=== PATIENT | male | born 1995 | race Caucasian/White ===

== ENCOUNTER 2020-11-15 14:18 | Inpatient (IN) | payer MEDICAID, SELFPAY ==
[2020-11-15 14:20] VITALS: BP 147/95; PULSE 129; RESP 16; TEMP 36.3; O2SAT 99; BMI 29.0
--- NOTE | 2020-11-15 14:32 | EDS_ITS ---
HPI History of Present Illness Chief Complaint: Substance Abuse Detail of Chief Complaint: Requesting detox from alcohol and meth Informant: patient and family Narrative Narrative: Patient presents to the emergency department with his aunt. He is requesting detox from alcohol. Patient has been drinking daily and normally drinks twisted teas as well as vodka. Patient last alcohol drink was yesterday. Patient has been using methamphetamines today. Per his aunt has been hallucinating and has been quite paranoid at times. Patient has not been sleeping well. Patient denies feeling suicidal or homicidal. He feels like he needs help mostly from his alcohol addiction. Patient does not frequently use opiates but states that if he is offered it he will use it. Prior similar symptoms: Yes PFSH PFSH Medical History Alcohol abuse Alcohol abuse Methamphetamine use Overdose Polysubstance abuse Tobacco use Home Medications NK 11/15/20 [History Last Taken Unknown] Allergy/AdvReac Type Severity Reaction Status Date / Time No Known Allergies Allergy Verified 11/15/20 14:19 Surgical History (Updated 11/15/20 @ 14:57 by Payton Hicks) Hx of cholecystectomy Social History Smoking Status: Current every day smoker tobacco type: cigarettes ROS ROS ED Constitutional Constitutional ED: Reports systems reviewed and no addt'l complaints, except as documented; Denies body ache(s), change in weight or chills Eyes Eyes: Denies acute decrease in peripheral vision, change in vision, double vision or loss of vision ENT ENT ED: Reports none; Denies ear pain, lip swelling, loss taste/smell, neck pain, otalgia or sore throat Cardiovascular Cardiovascular: Reports none; Denies abdominal pain, chest pain with activity, leg edema, lightheadedness, palpitations, rapid heart rate or syncope Respiratory/Chest Respiratory/Chest: Reports none; Denies change in mental status, dry cough, dyspnea, hemoptysis, shortness of breath at rest or shortness of breath with exertion Gastrointestinal Gastrointestinal: Reports none; Denies abdominal pain, change in stool character, diarrhea, hematemesis, hematochezia, melena, rectal bleeding or vomiting Genitourinary Genitourinary ED: Reports none; Denies abdominal discomfort, anuria, dysuria, genital pain or polyuria Musculoskeletal Musculoskeletal: Reports none; Denies arthralgias, back pain, difficulty walking, extremity pain, muscle weakness or myalgias Integumentary Reports none; Denies abscess or rash Neurologic Neurologic: Reports none; Denies abnormal gait, confusion, focal weakness, frequent falls, headache(s), loss of vision, numbness, paresthesias, radicular pain, vertigo or weakness Psychiatric Psychiatric: Reports systems reviewed and no addt'l complaints, except as documented and none; Denies behavioral changes, confusion, difficulty concentrating, hallucinations, suicidal ideation, tactile hallucinations or visual hallucinations Endocrine Endocrinology: Denies none, cold intolerance, excessive sweating, fatigue or h eat intolerance Hematologic/Lymphatic Hematologic/Lymphatic: Reports none; Denies anemia, easy bleeding or easy bruising Allergic/Immunologic Allergic/Immunologic ED: Denies as per HPI, none, lip swelling, mouth swelling, throat swelling, tongue swelling or hives EXAM Physical Exam Const Vital Signs: 11/15/20 14:20 Temperature 97.3 F L Temperature Source Temporal Pulse Rate 129 H Respiratory Rate 16 Blood Pressure 147/95 H Blood Pressure Mean 112 Pulse Ox 99 Oxygen Delivery Method Room Air Positive well nourished and well developed General Appearance ED: well developed and NAD HEENT Reports TM's clear and moist mucous membranes normocephalic and atraumatic; Negative for trauma or tenderness Tympanic Membrane ED: Yes TM's clear Eyes PERRL and EOMs intact bilaterally General Eye ED: Negative for pale conjunctiva or scleral icterus Neck no lymphadenopathy, supple and no JVD General: Negative for tenderness Chest Wall inspection of chest normal and palpation of chest normal Chest: Negative for tenderness Resp normal respiratory effort and clear to auscultation bilaterally Effort and Inspection: Negative for respiratory distress or pain with movement Auscultation: Negative for rhonchi, wheezes or diminished lung sounds Cardio regular rhythm, S1 normal heart sound, S2 normal heart sound and no murmurs Rate: tachycardic Peripheral Pulses: pulses 2+ throughout GI normal to inspection, nondistended, normoactive bowel sounds, soft to palpation, non-tender, non-distended and no masses Back/Spine no CVA tenderness and no thoracic nor lumbar tenderness Extremity normal to inspection General Extremety ED: Negative for edema General Extremity: Negative for edema Neuro oriented x3, CN's II-XII intact bilaterally, no sensory deficits noted and gait normal Sensorium / Orientation: awake, alert, oriented to person, oriented to place and oriented to time Motor Exam: strength 5/5 throughout and strength abnormal Psych mental status grossly normal Skin no rashes or lesions noted and no wounds MDM MDM MDM Narrative Medical decision making narrative: Patient had an IV line established he was given a milligram of Ativan and given some IV fluids. Case discussed with hospitalist will evaluate patient for admission. Lab Data Attestation: I reviewed the patient's lab results. Labs: Laboratory Results - last 24 hr 11/15/20 11/15/20 11/15/20 14:48 14:48 14:48 WBC 12.4 H RBC 5.29 Hgb 15.8 Hct 48.4 MCV 91.5 MCH 29.9 MCHC 32.6 RDW Std Deviation 46.0 H RDW Coeff of Laci 13.6 Plt Count 279 MPV 10.3 Immature Gran % (Auto) 0.400 Neut % (Auto) 68.9 Lymph % (Auto) 23.3 [place] % (Auto) 6.9 Eos % (Auto) 0.2 Baso % (Auto) 0.3 Absolute Neuts (auto) 8.5 H Absolute Lymphs (auto) 2.89 Nucleated RBC % 0 Sodium 142 Potassium 3.7 Chloride 107 Carbon Dioxide 28.0 Anion Gap 7 BUN 6 L Creatinine 1.04 Estim Creat Clear Calc 117.66 Est GFR (MDRD) Af Amer 113 Est GFR (MDRD) Non-Af 93 BUN/Creatinine Ratio 5.8 L Glucose 97 Calcium 9.6 Total Bilirubin 0.50 AST 32 ALT 55 Alkaline Phosphatase 78 Total Protein 8.1 Albumin 4.5 Globulin 3.6 Albumin/Globulin Ratio 1.2 Ethyl Alcohol < 3.0 Discharge Plan Triage Chief Complaint: Substance Abuse ED Provider: Timoteo Cifuentes Dx/Rx/DC Orders Clinical Impression: Alcohol abuse, Withdrawn from alcohol detoxification program Prescriptions: No Action NK RF: 0 Primary Care Provider: Care Physician,No Primary Referrals: Care Physician,No Primary [Primary Care Provider] - Disposition Disposition: Acute Care Hospital [facility]
--- NOTE | 2020-11-15 14:38 | CM.ED ---
Addendum entered by Virginia Anne 11/15/20 19:33: Patient reports he wants [facility] at discharge from Detox. Patient will follow up with [facility] tomorrow. Virginia Dayana HUDSON Original Note: SARAH Note Referral Source: Case Find Referral Reason: RAMP program SARAH met with patient in his room. Present was his aunt who is also his recovery support. Patient reports he wants to detox. Patient is detoxing from alcohol and meth. MD updated patient that the hospital does not detox meth. Patient was asked if he uses opiates and he reported he does if they are given to him. Patient said that he has been drinking twisted tea and vodka. Patient said that he drinks daily. Patient reports he drinks 1-2 cases a day and then 1-2 bottles of alcohol. Patient said that his drug of choice is mainly alcohol. SARAH explained the RAMP program and the contract for patient's to sign. Explained no visitors, possessions locked up and no phone calls. Patient verbalized understanding and was in agreement with RAMP program. Aunt said that patient is currently high from alcohol. Patient reports that he has no PCP. Patient's last use of alcohol was yesterday. SARAH called [facility] and left voice mail for Karie advising her of new admission to [facility]. SARAH provided patient with list of PCP/Internal Medicine Providers for patient's review. Patient reports he was previously in detox 2 years ago but never has been in residential treatment. Patient said that he wants residential treatment. SW received call back from Karie at [facility]. SW updated her about patient and his desire for RAMP program. SARAH updated Karie about patient's use and last use of AOD. Karie said that treatment navigator, Cristal, will be in tomorrow to meet with patient. Plan: RAMP program Virginia HUDSON
[2020-11-15] MEDS: 0.9% Normal Saline 1,000 ML 150 ML IV (14:51)
[2020-11-15] MEDS: LORazepam 2 MG/ML Syringe 1 MG IV (14:54)
[2020-11-15 15:04] LABS: Absolute Lymphocyte Count 2.89 X10^3/uL (0.83-4.51); Absolute Neutrophil Count 8.5 X10^3/uL (2.0-7.7); Basophil# 0.04 X10^3/uL; Basophil% 0.3 % (0-1); Eosinophil# 0.03 X10^3/uL; Eosinophils% 0.2 % (0-5); Hematocrit 48.4 % (40-54); Hemoglobin 15.8 g/dL (13.0-16.5); Lymphocyte # 2.89 X10^3/ul (0.83-4.51); Lymphocyte % 23.3 % (19-41); Mean Corp Hgb Conc 32.6 g/dL (32-36); Mean Corpuscular Hgb 29.9 pg (27.0-32.0); Mean Corpuscular Volume 91.5 fL (80-94); Mean Platelet Vol. 10.3 fl (6.2-12.0); Monocyte# 0.86 X10^3/uL; Monocyte% 6.9 % (0-10); NRBC Flagged by Analyzer 0 % (0-5); Neutrophil # 8.51 X10^3/uL (2.7-7.7); Neutrophil % 68.9 % (47-70); Platelet Count 279 K/mm3 (150-450); RBC Distribution Width CV 13.6 % (11.6-14.6); Red Blood Count 5.29 M/mm3 (4.6-6.2); White Blood Count 12.4 K/mm3 (4.4-11.0)
[2020-11-15 15:18] LABS: ALB/GLOB Ratio 1.2 RATIO (0.9-2.4); AST(SGOT) 32 U/L (15-37); Alanine Aminotransfer ALT/SGPT 55 U/L (16-61); Albumin, Serum 4.5 g/dL (3.2-5.0); Alkaline Phosphatase 78 U/L (45-117); Anion Gap 7 (5-15); BUN 6 mg/dL (7-18); BUN/Creat Ratio 5.8 RATIO (10-20); Calcium,Total 9.6 mg/dL (8.5-10.1); Chloride 107 mmol/L (98-107); Creatinine, Serum 1.04 mg/dL (0.70-1.30); EST Glomerular Filtration Rate 93 mL/min (>60); Est Glom Filt Rate - Afr Amer 113 mL/min (>60); Estimated Creatinine Clearance 117.66 ml/min; Globulin 3.6 g/dL (2.2-4.2); Glucose 97 mg/dL (74-106); Potassium 3.7 mmol/L (3.5-5.1); Protein, Total 8.1 g/dL (6.4-8.2); Sodium Level 142 mmol/L (136-145)
[2020-11-15 15:23] LABS: Alcohol, Blood (Medical)-Serum < 3.0 mg/dL
--- NOTE | 2020-11-15 15:24 | HP.PCM.HOS_ITS ---
HPI - General General Date of Admission: 11/15/20 Date of Service: 11/15/20 Chief Complaint: Acute EtOH withdrawal HPI Narrative The patient is a 25 y/o M w/ PMHx: Polysubstance abuse (Cannabis, Occasional opiates reporting only pills orally and snorted, methamphetamine primarily snorted but does admit IV the night prior), primarily EtOH abuse who presents to the [facility] on 11/15/20 w/ noted acute EtOH withdrawal, onset starting on day of ED presentation following last EtOH intake the day prior with onset of nausea, tremors, agitation, tactile disturbances in addition to reported hallucinations per his family. Patient was brought to the ED by his and and states that he is been drinking daily normally twisted teas (1-2 cases per day) as well as vodka in addition to usage of methamphetamine including on day of presentation. Per family he has been having hallucinations and occasionally paranoid with poor sleep but no history of episodes of suicidal ideation or homicidal ideations. Patient does report that he will occasionally use opiates but this is minimal. Work-up in the ED included T 97.3, heart rate 129, BP 147/95, respiratory rate 16, 99% on room air, CBC with WBC 12.4, hemoglobin 15.8, platelet 279 with left shift, CMP with BUN/creatinine 6/1.04 otherwise unremarkable hepatic profile, of alcohol less than 3, UDS pending upon requested evaluation of patient, rapid Covid antigen pending per ED. [facility] Medical History Alcohol abuse Methamphetamine use Overdose Polysubstance abuse Substance abuse Tobacco use Home Medications NK 11/15/20 [History Last Taken Unknown] Allergy/AdvReac Type Severity Reaction Status Date / Time No Known Allergies Allergy Verified 11/15/20 14:19 Family History (Updated 11/15/20 @ 15:[address] Lindsey Chappell MD) Mother Diabetes no significant family history (Father with no marked medical history including HD, DM, CA, Substance abuse.) Surgical History (Updated 11/15/20 @ 14:57 by Payton Hicks) Hx of cholecystectomy Social History (Updated 11/15/20 @ 15:[address] Lindsey Chappell MD) household members: family Smoking Status: Current every day smoker tobacco type: cigarettes Smoking packs per day: 1 Smoking cigarettes per day: 20.0 Years smoked: 11 Smoking pack-years: 11.00 alcohol intake: current alcohol intake frequency: 3 or more drinks per day Alcohol type: hard liquor and other details: Patient drinks 1-2 cases twisted tea and hard liquor also. substance use type: marijuana, amphetamines, opiates, painkillers and methamphetamine ROS ROS Narrative Admission Review of Systems: CONSTITUTIONAL: No weight loss, fever, chills, + weakness or fatigue. HEENT: Eyes: No visual loss, blurred vision, double vision or yellow sclerae. Ears, Nose, Throat: No hearing loss, sneezing, congestion, runny nose or sore throat. SKIN: No rash or itching, lesions, wounds. CARDIOVASCULAR: No chest pain, chest pressure or chest discomfort, palpitations, edema, orthopnea, syncopal events. RESPIRATORY: No shortness of breath, cough or sputum, wheezing, hemoptysis. GASTROINTESTINAL: + anorexia, nausea, No vomiting or diarrhea, abdominal pain, melena, BRBPR. GENITOURINARY: No dysuria, frequency, urgency or retention. NEUROLOGICAL: + Tremors, hallucinations, No headache, dizziness, syncope, p aralysis, ataxia, focal weakness, change in bowel or bladder control, seizure. MUSCULOSKELETAL: + muscle, back pain, joint pain or stiffness. HEMATOLOGIC: No anemia, bleeding or bruising. LYMPHATICS: No enlarged nodes. No history of splenectomy. PSYCHIATRIC: + history of depression or anxiety. ENDOCRINOLOGIC: No reports of sweating, cold or heat intolerance. No polyuria or polydipsia. ALLERGIES: No history of asthma, hives, eczema or rhinitis. Vital Signs Vital Signs Vital Signs: 11/15/20 14:20 Temperature 97.3 F L Temperature Source Temporal Pulse Rate 129 H Respiratory Rate 16 Blood Pressure 147/95 H Blood Pressure Mean 112 Pulse Ox 99 Oxygen Delivery Method Room Air Weight Weight: 208 lb 8.917 oz Body Mass Index (BMI) 29.0 Physical Exam Narrative Physical Examination: General: Awake, alert, oriented to self, place, recent events, reportedly has been hallucinating per family in the room, remains cooperative, seated upright in the ED bed, anxious, restless, yawning. Skin: Normal color, normal turgor, no icterus, no cyanosis except for track barrett to the right antecubital fossa as well as bruising to the upper arm and right neck. HEENT: AT/NC, EOMI, PERRLA, moderately dry MM, no carotid bruits or JVD noted, see skin. Lungs: CTA bilaterally, moderate effort, mild decrease BL bases, no rales, ronchi or wheezing. Heart: Tachycardic with regular rhythm; no gallop, rub audible. Abdomen: Soft, overweight, NTTP, ND, mildly hyperactive BS, no HSM. Extremities: No cyanosis, clubbing, or edema. Neurological: Patient awake, alert, oriented as noted, cognitive function likely decreased from baseline given family reporting hallucinations but answering orientation questions currently appropriately; pupils equally reactive to light and accommodation, cranial nerves II-XII grossly normal, moving all 4 extremities, no focal deficits, strength preserved, restless, mildly agitated, yawning, mild tremors evident. Psychiatric: Affect appears restless, agitated, no acute evidence of depressive or anxiety feelings. Results Lab / Micro Data Result Diagrams: 11/15/20 14:48 11/15/20 14:48 Labs: Laboratory Results - last 24 hr 11/15/20 14:48: WBC 12.4 H, RBC 5.29, Hgb 15.8, Hct 48.4, MCV 91.5, MCH 29.9, MCHC 32.6, RDW Std Deviation 46.0 H, RDW Coeff of Laci 13.6, Plt Count 279, MPV 10.3, Immature Gran % (Auto) 0.400, Neut % (Auto) 68.9, Lymph % (Auto) 23.3, [place] % (Auto) 6.9, Eos % (Auto) 0.2, Baso % (Auto) 0.3, Absolute Neuts (auto) 8.5 H, Absolute Lymphs (auto) 2.89, Nucleated RBC % 0 11/15/20 14:48: Sodium 142, Potassium 3.7, Chloride 107, Carbon Dioxide 28.0, Anion Gap 7, BUN 6 L, Creatinine 1.04, Estim Creat Clear Calc 117.66, Est GFR (MDRD) Af Amer 113, Est GFR (MDRD) Non-Af 93, BUN/Creatinine Ratio 5.8 L, Glucose 97, Calcium 9.6, Total Bilirubin 0.50, AST 32, ALT 55, Alkaline Phosphatase 78, Total Protein 8.1, Albumin 4.5, Globulin 3.6, Albumin/Globulin Ratio 1.2 11/15/20 14:48: Ethyl Alcohol < 3.0 Assessment & Plan Assessment/Plan (1) Alcohol withdrawal: QUALIFIERS: Complication of substance-induced condition: with delirium Qualified Code(s): F10.231 - Alcohol dependence with withdrawal delirium PLAN: The patient is a 25 y/o M w/ PMHx: Polysubstance abuse (Occasional opiates, methamphetamine), primarily EtOH abuse who presents to the [facility] on 11/15/20 w/ noted acute EtOH withdrawal, onset starting on day of ED presentation following last EtOH intake the day prior with onset of nausea, tremors, agitation, tactile disturbances as well as hallucinations. 1. Acute EtOH Withdrawal: Will admit to MS, routine labs obtained in the ED upon presentation and not marked appearing, UDS pending. Given interest in sobriety, will initiate and continue on protocol with taper course of Phenobarbital, scheduled gabapentin for seizure prophylaxis, as needed Catapres, Bentyl, Vistaril, IV fluids, IV antiemetics, Tylenol as needed for pain. Will consult Case management for assistance for transition to next level of rehabilitation care. Mag, phos pending. Maintain on CIWA protocol concurrently. 2. Polysubstance Abuse: Patient with usage of methamphetamine, occasional opiates, urine drug screen is pending. Will obtain HIV and hepatitis panel to be thorough. At this point patient would not be a candidate for hepatitis C as would need to be clean and sober for at least 6 months with documented attendance at meetings. 3. Tobacco Abuse: Encouraged cessation, inpatient consultation per RT, NR if desired. 4. DVT prophylaxis: Low risk, encourage ambulation. Charges/Coding Visit Charges Inpatient E&M: 87071 Init Hosp L3
--- NOTE | 2020-11-15 15:28 | NURSING ---
DR MCKEON FOR DR SCHUSTER
[2020-11-15 15:54] VITALS: BP 158/101; PULSE 101; RESP 18; TEMP 37.4; O2SAT 99
[2020-11-15 16:11] LABS: Magnesium 2.3 mg/dL (1.6-2.6); Phosphorus 3.4 mg/dL (2.5-4.9)
[2020-11-15 16:29] VITALS: BMI 28.8
[2020-11-15 16:34] VITALS: BP 152/100; PULSE 110; RESP 16; TEMP 36.9; O2SAT 100
[2020-11-15 16:41] LABS: Amphetamine Urine VISTA POSITIVE (<1000 ng/mL); Barbiturate Urine VISTA NEGATIVE (< 200 ng/mL); Benzodiazepine Urine VISTA NEGATIVE (< 200 ng/mL); Cocaine Urine VISTA POSITIVE (< 300 ng/mL); Ecstacy Urine VISTA POSITIVE (< 500 ng/mL); Methadone Urine VISTA NEGATIVE (< 300 ng/mL); PCP Urine VISTA NEGATIVE (< 25 ng/mL); THC Urine VISTA POSITIVE (< 50 ng/mL); Vista UDS pH Range 6
[2020-11-15 16:42] LABS: HIV - WCH Non-Reactive (Nonreactive)
[2020-11-15] MEDS: Lactated Ringers 1,000 ML 125 ML IV (17:19)
[2020-11-15] MEDS: Phenobarbital 32.4 MG Tablet 64.8 MG PO ×2 (17:19→20:56)
[2020-11-15] MEDS: hydrOXYzine PAM 25 MG Capsule 50 MG PO (17:20)
[2020-11-15 20:58] VITALS: BP 155/97; PULSE 102; RESP 18; TEMP 36.8; O2SAT 100
[2020-11-16] VITALS (7 sets, daily range): BP systolic 112–142; BP diastolic 71–97; PULSE 95–109; RESP 16–18; TEMP 36.5–36.7; O2SAT 98–100; BMI 28.8
[2020-11-16] MEDS: Phenobarbital 32.4 MG Tablet 64.8 MG PO ×6 (01:24→21:12)
--- NOTE | 2020-11-16 06:20 | PN.HOSP_ITS ---
Objective Data Objective Data Vital Signs: Vital Signs Temp Pulse Resp BP Pulse Ox 97.9 F 97 16 112/71 100 11/16/20 01:39 11/16/20 01:39 11/16/20 01:39 11/16/20 01:39 11/16/20 01:39 Oxygen Delivery Method Room Air Weight: 207 lb Body Mass Index (BMI) 28.8 Intake & Output: Intake and Output for Last 24 Hours 11/14/20 11/15/20 11/16/20 23:59 23:59 23:59 Intake Total 285 / 285 1000 / 1000 Balance 285 / 285 1000 / 1000 Lab / Micro Data Result Diagrams: 11/15/20 14:48 11/15/20 14:48 Labs: Laboratory Results - last 24 hr 11/15/20 14:48: WBC 12.4 H, RBC 5.29, Hgb 15.8, Hct 48.4, MCV 91.5, MCH 29.9, MCHC 32.6, RDW Std Deviation 46.0 H, RDW Coeff of Lcai 13.6, Plt Count 279, MPV 10.3, Immature Gran % (Auto) 0.400, Neut % (Auto) 68.9, Lymph % (Auto) 23.3, [place] % (Auto) 6.9, Eos % (Auto) 0.2, Baso % (Auto) 0.3, Absolute Neuts (auto) 8.5 H, Absolute Lymphs (auto) 2.89, Nucleated RBC % 0 11/15/20 14:48: Sodium 142, Potassium 3.7, Chloride 107, Carbon Dioxide 28.0, Anion Gap 7, BUN 6 L, Creatinine 1.04, Estim Creat Clear Calc 117.66, Est GFR (MDRD) Af Amer 113, Est GFR (MDRD) Non-Af 93, BUN/Creatinine Ratio 5.8 L, Glucose 97, Calcium 9.6, Total Bilirubin 0.50, AST 32, ALT 55, Alkaline Phosphatase 78, Total Protein 8.1, Albumin 4.5, Globulin 3.6, Albumin/Globulin Ratio 1.2 11/15/20 14:48: Ethyl Alcohol < 3.0 11/15/20 14:48: Phosphorus 3.4, Magnesium 2.3 11/15/20 14:48: HIV 1&2 Antibody Non-Reactive 11/15/20 16:21: Urine Opiates Screen NEGATIVE, Urine Methadone Screen NEGATIVE, Ur Barbiturates Screen NEGATIVE, Ur Phencyclidine Scrn NEGATIVE, Ur Amphetamines Screen POSITIVE H, U Methamphetamin-MDMA POSITIVE H, U Benzodiazepines Scrn NEGATIVE, Urine Cocaine Screen POSITIVE H, U Cannabinoids Screen POSITIVE H, Ur Drug Screen Comment Micro: Microbiology 11/15/20 15:05 Mucosa - Nose SARS-CoV-2 Antigen (Rapid) - Final
[2020-11-16] MEDS: Multivitamins,Therapeutic Tablet 1 TABLET PO (08:34)
[2020-11-16] MEDS: Thiamine Hydrochloride 100 MG Tablet PO (08:34)
[2020-11-16] MEDS: Folic Acid 1 MG Tablet PO (08:36)
--- NOTE | 2020-11-16 10:48 | DS.PCM_ITS ---
Providers Date of Admission: 11/15/20 Primary Care Physician: No Primary Care Phys Reason For Visit: ACUTE ETOH WITHDRAWAL Diagnosis Discharge Diagnosis (1) Alcohol withdrawal: Status: Acute Code(s): F10.239 - Alcohol dependence with withdrawal, unspecified Qualifiers: Complication of substance-induced condition: with delirium Qualified Code(s): F10.231 - Alcohol dependence with withdrawal delirium Medications at Discharge Home Medications NK 11/15/20 Weight / BMI Weight Weight: 207 lb 0.013 oz Body Mass Index (BMI) 28.8 ABG / Lab / Microbiology Data Result Diagrams: 11/15/20 14:48 11/15/20 14:48 Laboratory: Laboratory Results - last 24 hr 11/15/20 14:48: WBC 12.4 H, RBC 5.29, Hgb 15.8, Hct 48.4, MCV 91.5, MCH 29.9, MCHC 32.6, RDW Std Deviation 46.0 H, RDW Coeff of Laci 13.6, Plt Count 279, MPV 10.3, Immature Gran % (Auto) 0.400, Neut % (Auto) 68.9, Lymph % (Auto) 23.3, [place] % (Auto) 6.9, Eos % (Auto) 0.2, Baso % (Auto) 0.3, Absolute Neuts (auto) 8.5 H, Absolute Lymphs (auto) 2.89, Nucleated RBC % 0 11/15/20 14:48: Sodium 142, Potassium 3.7, Chloride 107, Carbon Dioxide 28.0, Anion Gap 7, BUN 6 L, Creatinine 1.04, Estim Creat Clear Calc 117.66, Est GFR (MDRD) Af Amer 113, Est GFR (MDRD) Non-Af 93, BUN/Creatinine Ratio 5.8 L, Glucose 97, Calcium 9.6, Total Bilirubin 0.50, AST 32, ALT 55, Alkaline Phosphatase 78, Total Protein 8.1, Albumin 4.5, Globulin 3.6, Albumin/Globulin Ratio 1.2 11/15/20 14:48: Ethyl Alcohol < 3.0 11/15/20 14:48: Phosphorus 3.4, Magnesium 2.3 11/15/20 14:48: HIV 1&2 Antibody Non-Reactive 11/15/20 16:21: Urine Opiates Screen NEGATIVE, Urine Methadone Screen NEGATIVE, Ur Barbiturates Screen NEGATIVE, Ur Phencyclidine Scrn NEGATIVE, Ur Amphetamines Screen POSITIVE H, U Methamphetamin-MDMA POSITIVE H, U Benzodiazepines Scrn NEGATIVE, Urine Cocaine Screen POSITIVE H, U Cannabinoids Screen POSITIVE H, Ur Drug Screen Comment Microbiology: Microbiology 11/15/20 15:05 Mucosa - Nose SARS-CoV-2 Antigen (Rapid) - Final Discharge Plan Admission Admit Date/Time: 11/15/20 15:29 Attending Provider: Lindsey Chappell Primary Care Provider: Care Physician,No Primary Discharge Orders/Prescriptions Prescriptions: No Action NK RF: 0 Referrals / Follow Up: Care Physician,No Primary [Primary Care Provider] - Disposition Discharge Orders: Discharge Patient (Routine); Ordered 11/16/20 Ordered By: Dr. Lindsey Chappell
--- NOTE | 2020-11-16 10:50 | PCM.PN.HOSP ---
Objective Data Objective Data Vital Signs: Vital Signs Temp Pulse Resp BP Pulse Ox 98.0 F 103 H 18 135/94 H 100 11/16/20 08:30 11/16/20 08:30 11/16/20 08:30 11/16/20 08:30 11/16/20 08:30 Oxygen Delivery Method Room Air Weight: 207 lb 0.013 oz Body Mass Index (BMI) 28.8 Intake & Output: Intake and Output for Last 24 Hours 11/14/20 11/15/20 11/16/20 23:59 23:59 23:59 Intake Total 285 / 285 1000 / 1000 Balance 285 / 285 1000 / 1000 Lab / Micro Data Result Diagrams: 11/15/20 14:48 11/15/20 14:48 Labs: Laboratory Results - last 24 hr 11/15/20 14:48: WBC 12.4 H, RBC 5.29, Hgb 15.8, Hct 48.4, MCV 91.5, MCH 29.9, MCHC 32.6, RDW Std Deviation 46.0 H, RDW Coeff of Laci 13.6, Plt Count 279, MPV 10.3, Immature Gran % (Auto) 0.400, Neut % (Auto) 68.9, Lymph % (Auto) 23.3, [place] % (Auto) 6.9, Eos % (Auto) 0.2, Baso % (Auto) 0.3, Absolute Neuts (auto) 8.5 H, Absolute Lymphs (auto) 2.89, Nucleated RBC % 0 11/15/20 14:48: Sodium 142, Potassium 3.7, Chloride 107, Carbon Dioxide 28.0, Anion Gap 7, BUN 6 L, Creatinine 1.04, Estim Creat Clear Calc 117.66, Est GFR (MDRD) Af Amer 113, Est GFR (MDRD) Non-Af 93, BUN/Creatinine Ratio 5.8 L, Glucose 97, Calcium 9.6, Total Bilirubin 0.50, AST 32, ALT 55, Alkaline Phosphatase 78, Total Protein 8.1, Albumin 4.5, Globulin 3.6, Albumin/Globulin Ratio 1.2 11/15/20 14:48: Ethyl Alcohol < 3.0 11/15/20 14:48: Phosphorus 3.4, Magnesium 2.3 11/15/20 14:48: HIV 1&2 Antibody Non-Reactive 11/15/20 16:21: Urine Opiates Screen NEGATIVE, Urine Methadone Screen NEGATIVE, Ur Barbiturates Screen NEGATIVE, Ur Phencyclidine Scrn NEGATIVE, Ur Amphetamines Screen POSITIVE H, U Methamphetamin-MDMA POSITIVE H, U Benzodiazepines Scrn NEGATIVE, Urine Cocaine Screen POSITIVE H, U Cannabinoids Screen POSITIVE H, Ur Drug Screen Comment Micro: Microbiology 11/15/20 15:05 Mucosa - Nose SARS-CoV-2 Antigen (Rapid) - Final
--- NOTE | 2020-11-16 11:06 | NT.THERAPY_ITS ---
Medical Nutrition Therapy - History Nutrition Services has been consulted to:: Manage nutrient details of diet order Current diet/nutrition support order:: Regular - general diet w/ 3 snacks per day as tolerated. Regular food consistency. Regular/thin liquid consistency. No ONS at this time. - Anthropometric Measurements Height:: 5 ft 11 in Weight:: 93.894 kg Body Mass Index (BMI):: 28.8 - Relevant Labs Relevant Labs:: WBC 12.4 K/mm3 (4.4-11.0) H 11/15/20 14:48 RDW Std Deviation 46.0 fl (35.1-43.9) H 11/15/20 14:48 Absolute Neuts (auto) 8.5 X10^3/uL (2.0-7.7) H 11/15/20 14:48 BUN 6 mg/dL (7-18) L 11/15/20 14:48 BUN/Creatinine Ratio 5.8 RATIO (10-20) L 11/15/20 14:48 - Assessment Food and Nutrient Intake: Pt was alert at time of visit. Pt reports that he has a poor appetite. States that he doesn't eat meals at home. Reports that he was able to eat a salad last night for dinner at the hospital. Pt states that he was able to eat 50% of his breakfast this morning. Per EMR pt consumes 1-2 cases/day of twisted tea and also consumes vodka everyday. Pt reports that he was aware that he was losing weight but wasn't intentionally trying to lose it. Pt states that he started losing weight 6 months ago. Pt reports UBW as 250# and CBW is 207# representing 43#/17% weight loss x6 months. Food intake and weight loss is significant for malnutrition. - Nutrition Diagnosis: Clinical Problem Chronic Disease or Condition Related Malnutrition Clinical Problem - Etiology: in the context of social or environmental circumstances r/t inadequate protein intake and lack of nutrient-dense foods with excessive alcohol intake Clinical Problem - Signs/Symptoms: as evidenced by pt report of not consuming any meals, 43#/17% unintentional weight loss x6 months, and consumption of 1-2 cases of twisted teas daily. Status: Active Problem - Protein Calorie Malnutrition Evidence of Malnutrition Exists: Yes Severe Protein Calorie Malnutrition:: Social/Behavioral/Environmental - Nutrition Intervention Nutrition Prescription: 2,400-2,500kcal/day (RMR x 1.3 -250). Protein 85- 95g/day (1.0g/kg). Fluid 2,800-3,000mL/day (30mL/kg) - Food / Nutrient Delivery Interventions Summary of nutrition intervention:: Provide oral nutrition supplement Nutrition support ordered as / adjusted to:: Continue regular - general diet. Add strawberry ensure enlive at meals. - MNT Monitoring Active Nutrition Patient: Yes Nutrition Status: Requires Follow Up 3-5 Days
--- NOTE | 2020-11-16 11:31 | PN.HOSP_ITS ---
Subjective Subjective Patient with no acute complaints overnight per self and per nursing report aside this a.m. noted increased nicotine craving with requested increased regimen. Several times he did state that he was intending on leaving AGAINST MEDICAL ADVICE but eventually did stay. He notes that withdrawal symptoms have improved and continue to do so. Patient denies fevers, chills, nausea, emesis, abdominal pain, chest pain or dyspnea. Objective Data Objective Data Vital Signs: Vital Signs Temp Pulse Resp BP Pulse Ox 98.0 F 103 H 18 135/94 H 100 11/16/20 08:30 11/16/20 08:30 11/16/20 08:30 11/16/20 08:30 11/16/20 08:30 Oxygen Delivery Method Room Air Weight: 207 lb 0.013 oz Body Mass Index (BMI) 28.8 Intake & Output: Intake and Output for Last 24 Hours 11/14/20 11/15/20 11/16/20 23:59 23:59 23:59 Intake Total 285 / 285 1000 / 1000 Balance 285 / 285 1000 / 1000 Lab / Micro Data Result Diagrams: 11/15/20 14:48 11/15/20 14:48 Labs: Laboratory Results - last 24 hr 11/15/20 14:48: WBC 12.4 H, RBC 5.29, Hgb 15.8, Hct 48.4, MCV 91.5, MCH 29.9, MCHC 32.6, RDW Std Deviation 46.0 H, RDW Coeff of Laci 13.6, Plt Count 279, MPV 10.3, Immature Gran % (Auto) 0.400, Neut % (Auto) 68.9, Lymph % (Auto) 23.3, [place] % (Auto) 6.9, Eos % (Auto) 0.2, Baso % (Auto) 0.3, Absolute Neuts (auto) 8.5 H, Absolute Lymphs (auto) 2.89, Nucleated RBC % 0 11/15/20 14:48: Sodium 142, Potassium 3.7, Chloride 107, Carbon Dioxide 28.0, Anion Gap 7, BUN 6 L, Creatinine 1.04, Estim Creat Clear Calc 117.66, Est GFR (MDRD) Af Amer 113, Est GFR (MDRD) Non-Af 93, BUN/Creatinine Ratio 5.8 L, Glucose 97, Calcium 9.6, Total Bilirubin 0.50, AST 32, ALT 55, Alkaline Phosphatase 78, Total Protein 8.1, Albumin 4.5, Globulin 3.6, Albumin/Globulin Ratio 1.2 11/15/20 14:48: Ethyl Alcohol < 3.0 11/15/20 14:48: Phosphorus 3.4, Magnesium 2.3 11/15/20 14:48: HIV 1&2 Antibody Non-Reactive 11/15/20 16:21: Urine Opiates Screen NEGATIVE, Urine Methadone Screen NEGATIVE, Ur Barbiturates Screen NEGATIVE, Ur Phencyclidine Scrn NEGATIVE, Ur Amphetamines Screen POSITIVE H, U Methamphetamin-MDMA POSITIVE H, U Benzodiazepines Scrn NEGATIVE, Urine Cocaine Screen POSITIVE H, U Cannabinoids Screen POSITIVE H, Ur Drug Screen Comment Micro: Microbiology 11/15/20 15:05 Mucosa - Nose SARS-CoV-2 Antigen (Rapid) - Final Physical Exam Narrative Physical Examination: General: Awake, alert, oriented x 3 and cooperative, seated upright in the medical surgical bed, fatigued this a.m., less agitated. Skin: Normal color, normal turgor, no icterus, no cyanosis except right upper extremity track barrett and staged ecchymoses. HEENT: AT/NC, EOMI, PERRLA, MMM. Lungs: Mildly diminished, greater bases, moderate effort, no rales, ronchi or wheezing. Heart: Regular rate and rhythm; no gallop, rub audible. Abdomen: Soft, NTTP, ND, normal BS. Extremities: No cyanosis, clubbing, or edema. Neurological: Patient awake, alert, oriented as noted, cognitive function intact; pupils equally reactive to light and accommodation, cranial nerves II- XII grossly normal, moving all 4 extremities, no focal deficits, strength pr eserved, improved appearance, less agitated, no tremors. Psychiatric: Affect appears fatigued, more calm, no acute evidence of depressive or anxiety feelings. Assessment & Plan Assessment/Plan (1) Alcohol withdrawal: QUALIFIERS: Complication of substance-induced condition: with delirium Qualified Code(s): F10.231 - Alcohol dependence with withdrawal delirium PLAN: The patient is a 25 y/o M w/ PMHx: Polysubstance abuse (Occasional opiates, methamphetamine), primarily EtOH abuse who presents to the [facility] on 11/15/20 w/ noted acute EtOH withdrawal, onset starting on day of ED presentation following last EtOH intake the day prior with onset of nausea, tremors, agitation, tactile disturbances as well as hallucinations. 1. Acute EtOH Withdrawal: Patient mated to medical surgical floor, routine labs obtained in the ED and not marked appearing, UDS was notable for amphetamine, methamphetamine, cocaine and cannabis. Given interest in sobriety, patient was initiated and currently continued on protocol with taper course of Phenobarbital, scheduled gabapentin for seizure prophylaxis, as needed Catapres, Bentyl, Vistaril, IV fluids, IV antiemetics, Tylenol as needed for pain. Case management has been consulted for assistance for transition to next level of rehabilitation care. Mag, phos normal levels. Maintain on CIWA protocol concurrently. 2. Polysubstance Abuse: Patient with usage of methamphetamine, occasional opiates, urine drug screen with significant findings of amphetamine, methamphetamine, cocaine and cannabis as noted. HIV nonreactive, hepatitis panel pending. At this point patient would not be a candidate for hepatitis C as would need to be clean and sober for at least 6 months with documented attendance at meetings. 3. Tobacco Abuse: Encouraged cessation, inpatient consultation per RT, NR broadened with patch and as needed gum. 4. DVT prophylaxis: Low risk, encourage ambulation. Charges/Coding Visit Charges Inpatient E&M: 76505 Subs Hosp L2
--- NOTE | 2020-11-16 12:10 | ADDICTION ---
This writer editor met with PT to conduct ASAM, MSE, AUDIT, DUDIT assessments and to plan for d/c. PT A+Ox4 and participated appropriately. All assessments completed. D/C plan completed. PT to d/c to home and plans to attend an assessment with Dov on 11/20/20 at 9:30am. PT was provided other walk-in assessment times, as well, in case he is not able to present to this appointment.
[2020-11-16] MEDS: Nicotine Polacrilex 2 MG GUM PO (12:52)
--- NOTE | 2020-11-16 15:52 | CHAPLAIN ---
Type of Pastoral Visit _x__ Initial Visit ___ Follow-up Visit ___ On-call Visit ___ General Patient Visit ___ Spiritual Assessment ___ Family Conference ___ Bereavement ___ Rapid Response ___ Code Blue ___ Other (describe below) Pastoral Care Referral From _x__ Patient ___ Family ___ Nurse ___ Physician ___ Superintendent Laundry ___ Charger Tester ___ Other (describe below) Sacrament/Intervention _x__ Active listening ___ Anointing ___ Oriental Orthodox ___ Bereavement ___ Communion ___ Marcia exploration ___ _x__ Life review _x__ Prayer ___ Reconciliation ___ Sacrament of Sick _x__ Supportive presence ___ Wedding ___ Other (describe below) Pastoral Comments
--- NOTE | 2020-11-16 19:32 | NURSING ---
called pt mother, Darlene, to provide update per pt request. pt also requested I ask his mom to bring his car and leave in the parking lot. Darlene stated that she was unable to bring his car and that she wanted to make sure he would be able to stay and complete treatment. she also informed this RN that pt had court appearance scheduled for this morning and that since pt missed it, there was likely a warrant out for his arrest. she was hoping that he would be DC to [facility] upon DC so pt could get rehab prior to intermediate time. explained that it appeared that pt wanted to go home and follow up with [facility]. discussed with patient and he stated he thought that he wouldn't be able to go to inpatient with a warrant out for him. informed him that I would pass along to Elinor from [facility] to determine what his options were.
[2020-11-16] MEDS: traZODone 100 MG Tablet PO (23:23)
[2020-11-17] MEDS: Phenobarbital 32.4 MG Tablet 64.8 MG PO ×3 (01:10→09:26)
[2020-11-17 03:00] VITALS: BP 110/75; PULSE 84; RESP 16; TEMP 36.6; O2SAT 98
[2020-11-17 09:00] VITALS: BP 105/69; PULSE 82; RESP 16; TEMP 36.6; O2SAT 98
[2020-11-17] MEDS: Thiamine Hydrochloride 100 MG Tablet PO (09:26)
[2020-11-17] MEDS: Multivitamins,Therapeutic Tablet 1 TABLET PO (09:26)
[2020-11-17] MEDS: Folic Acid 1 MG Tablet PO (09:27)
--- NOTE | 2020-11-17 11:37 | NURSING ---
Pt came to the desk twice. First time he asked for his cell phone which we told him he could not have and it was locked up. 2nd time at the nurses desk he said he wanted to leave. I'm not going threw detox anymore. The nurses say I'm fine. Pt states, I want to turn myself in. Pt states he has a warrant for his arrest. Dr. Chappell is aware that pt is leaving AMA.
--- NOTE | 2020-11-17 12:08 | DS.PCM_ITS ---
Providers Date of Admission: 11/15/20 Primary Care Physician: No Primary Care Phys Reason For Visit: ACUTE ETOH WITHDRAWAL Diagnosis Discharge Diagnosis (1) Alcohol withdrawal: Status: Acute Code(s): F10.239 - Alcohol dependence with withdrawal, unspecified Qualifiers: Complication of substance-induced condition: with delirium Qualified Code(s): F10.231 - Alcohol dependence with withdrawal delirium Medications at Discharge Home Medications NK 11/15/20 Hospital Course Operations None Procedures EKG Summary of Care Provided Minutes Spent on Discharge: 35 Hospital Course: Discharge Diagnoses: 1. Acute EtOH Withdrawal 2. Polysubstance Abuse (amphetamine, methamphetamine, cocaine and cannabis) 3. Tobacco Abuse Discharge Summary: The patient is a 25 y/o M w/ PMHx: Polysubstance abuse (Occasional opiates, methamphetamine), primarily EtOH abuse who presented to the [facility] on 11[facility]20 w/ noted acute EtOH withdrawal, onset starting on day of ED presentation following last EtOH intake the day prior with onset of nausea, tremors, agitation, tactile disturbances as well as hallucinations. Patient admitted to medical surgical floor, routine labs obtained in the ED and not marked appearing, UDS was notable for amphetamine, methamphetamine, cocaine and cannabis. Given interest in sobriety, patient was initiated and continued on pr otocol with taper course of Phenobarbital, scheduled gabapentin for seizure prophylaxis, as needed Catapres, Bentyl, Vistaril, IV fluids, IV antiemetics, Tylenol as needed for pain. Case management consulted for assistance for transition to next level of rehabilitation care. Mag, phos normal levels. HIV nonreactive, hepatitis panel pending upon his leaving AMA. Patient on 11/16/2020 did initially discuss leaving AGAINST MEDICAL ADVICE but stayed with alteration to his nicotine patch. Patient evaluated 11/18/2019 1 AM and note he was doing well with resolution of withdrawal symptoms and that he did intend to continue to complete the program; however, in the afternoon patient notified staff of his intention to leave and left AMA. Discharge Time: > 35 Minutes DAY OF DISCHARGE PROGRESS NOTE: Subjective: Patient without acute event overnight per self and nursing report. Patient in the a.m. noting improvement in withdrawal symptoms and only note was fatigue but no complaints. Discussed that the day prior patient had several times told staff he might leave AMA but remains. This morning patient stated his intention to continue and complete the program despite eventually leaving AMA. Patient denies fever, chills, nausea, emesis, abdominal pain, chest pain or dyspnea. Objective: T 97.9, heart rate 82, BP 105/69, respiratory rate 16, 98% on room air. Physical Examination: General: Awake, alert, oriented x 3 and cooperative, seated upright in the medical surgical bed, fatigued this a.m., no complaints, notes intention to remain for full program despite leaving AMA later in the morning. Skin: Normal color, normal turgor, no icterus, no cyanosis except right upper extremity track barrett and staged ecchymoses. HEENT: AT/NC, EOMI, PERRLA, MMM. Lungs: Mildly diminished, greater bases, moderate effort, no rales, ronchi or wheezing. Heart: Regular rate and rhythm; no gallop, rub audible. Abdomen: Soft, NTTP, ND, normal BS. Extremities: No cyanosis, clubbing, or edema. Neurological: Patient awake, alert, oriented as noted, cognitive function intact; pupils equally reactive to light and accommodation, cranial nerves II- XII grossly normal, moving all 4 extremities, no focal deficits, strength preserved. Psychiatric: Affect appears fatigued, no acute evidence of depressive or anxiety feelings. Assessment and Plan: Please see hospital summary above. Weight / BMI Weight Weight: 207 lb 0.013 oz Body Mass Index (BMI) 28.8 ABG / Lab / Microbiology Data Result Diagrams: 11/15/20 14:48 11/15/20 14:48 Microbiology: Microbiology 11/15/20 15:05 Mucosa - Nose SARS-CoV-2 Antigen (Rapid) - Final Meaningful Use Info Meaningful Use Diagnoses (Choose all that apply): None applicable Discharge Plan Admission Admit Date/Time: 11/15/20 15:29 Attending Provider: Lindsey Chappell Primary Care Provider: Care Physician,No Primary Discharge Orders/Prescriptions Prescriptions: No Action NK RF: 0 Referrals / Follow Up: Care Physician,No Primary [Primary Care Provider] - Charges/Coding Visit Charges Inpatient E&M: 01676 Disch Hosp
[2020-11-17 14:08] LABS: HEPATITIS B SURFACE AG Negative (Negative); Hepatitis B Core AB IgM Negative (Negative); Hepatitis B Core Ab Total Negative (Negative); Hepatitis Be Ab Negative (Negative); Hepatitis Be Ag Negative (Negative); Hepatitis C Ab <0.1 s/co ratio (0.0-0.9)
[2020-11-18 11:56] LABS: Hep B Surface Antibodies Non Reactive (.)
== END 2020-11-17 11:42 | disposition left against medical advice (07) | DRG 770 ==
LOC: ED 15:33 → MS3 16:12
PROVIDERS: Admitting Provider Family Medicine; Emergency Provider Emergency Medicine; Visit Provider Family Medicine
DX: F10.231 Alcohol dependence with withdrawal delirium (principal); F15.10 Other stimulant abuse, uncomplicated; F14.10 Cocaine abuse, uncomplicated; F12.10 Cannabis abuse, uncomplicated; F11.10 Opioid abuse, uncomplicated; F17.210 Nicotine dependence, cigarettes, uncomplicated; E44.1 Mild protein-calorie malnutrition; Z68.29 Body mass index [BMI] 29.0-29.9, adult
CPT/HCPCS: 80053; 80307; 82077; 83735; 84100; 85025; 86703; 86704; 86705; 86706; 86707; 86803; 87340; 87350; 87426; 97802; 99284; 99406; J7030; J7120

== ENCOUNTER 2021-01-18 19:38 | Emergency (ER) | payer MEDICAID, SELFPAY ==
[2021-01-18 19:39] VITALS: BP 128/87; PULSE 105; RESP 22; TEMP 36.6; O2SAT 100; BMI 25.9
[2021-01-18 20:12] LABS: Absolute Lymphocyte Count 2.46 X10^3/uL (0.83-4.51); Absolute Neutrophil Count 5.5 X10^3/uL (2.0-7.7); Basophil# 0.02 X10^3/uL; Basophil% 0.2 % (0-1); Eosinophils% 1.2 % (0-5); Hematocrit 44.1 % (40-54); Lymphocyte # 2.46 X10^3/ul (0.83-4.51); Lymphocyte % 28.5 % (19-41); Mean Corpuscular Hgb 30.3 pg (27.0-32.0); Mean Corpuscular Volume 89.1 fL (80-94); Mean Platelet Vol. 10.6 fl (6.2-12.0); Monocyte# 0.54 X10^3/uL; Monocyte% 6.3 % (0-10); NRBC Flagged by Analyzer 0 % (0-5); Neutrophil # 5.49 X10^3/uL (2.7-7.7); Neutrophil % 63.6 % (47-70); Platelet Count 277 K/mm3 (150-450); RBC Distribution Width CV 13.2 % (11.6-14.6); RBC Distribution Width SD 43.3 fl (35.1-43.9); Red Blood Count 4.95 M/mm3 (4.6-6.2); White Blood Count 8.6 K/mm3 (4.4-11.0)
--- NOTE | 2021-01-18 20:13 | CM.ED ---
Addendum entered by Virginia Anne 01/18/21 21:19: SARAH updated Elsa Peña the SARAH Lead and [place] in registration. Virginia YEE Original Note: SARAH Note Referral Source: Case Find Referral Reason: RAMP/Detox SARAH met with patient and his aunt in the hallway in the ED due to COVID disaster status. Patient gave permission for this gag writer to speak to him in the [place] and gave this gag writer permission to speak to him in front of his support, his aunt (Scarlett Donovan sober support). Patient said that he was previously in the hospital and left AMA (per records left on 11/15/20). Patient said that his goal is to get into a shelter house. Patient was registered as requesting detox and patient indicated that he used 1 hour before we came in approximately 6:30pm. Patient said that his drug of choice is meth and her also does heroin, Xanax, alcohol and anything I can get my hands on. Patient reports he was here in the past and left AMA and also had been at [facility] for detox 4 years ago. Patient said that he wants shelter house. Patient said tht he did .3 or .4 meth and a line of heroin. Patient is not linked with [facility] at the time. SW asked patient what she heard in regards to this gag writer state and he said your working on getting me help. SARAH called Nimesh SMITH called Detox Coordinator, Everardo Felix and review patient's needs for detox. Everardo spoke to patient and aunt and provided them with [facility]quest at [facility] and [facility] in [place]. Aunt wanted to ensure that patient could come back to residential at [facility] and she was told who to contact. SARAH asked patient and the aunt to wait while SARAH spoke to . MD said that she would be out shortly to meet with them. SARAH went to update patient and the aunt and they had left. Patient was advised to wait but him and his aunt left prior to be seen. Patient was referred to Detox coordinator for detox facilities. Plan: Detox at [place] or [place]. Patient was advised this gag writer wanted to speak to MD and then would update him but patient and aunt left. Virginia Yee
[2021-01-18 20:20] LABS: Anion Gap 8 (5-15); BUN 6 mg/dL (7-18); BUN/Creat Ratio 6.3 RATIO (10-20); Chloride 109 mmol/L (98-107); Creatinine, Serum 0.95 mg/dL (0.70-1.30); EST Glomerular Filtration Rate 103 mL/min (>60); Est Glom Filt Rate - Afr Amer 125 mL/min (>60); Glucose 139 mg/dL (74-106); Potassium 3.1 mmol/L (3.5-5.1); Sodium Level 138 mmol/L (136-145)
[2021-01-18 20:53] LABS: Amphetamine Urine VISTA POSITIVE (<1000 ng/mL); Barbiturate Urine VISTA NEGATIVE (< 200 ng/mL); Benzodiazepine Urine VISTA NEGATIVE (< 200 ng/mL); Cocaine Urine VISTA NEGATIVE (< 300 ng/mL); Ecstacy Urine VISTA POSITIVE (< 500 ng/mL); Methadone Urine VISTA NEGATIVE (< 300 ng/mL); PCP Urine VISTA NEGATIVE (< 25 ng/mL); THC Urine VISTA POSITIVE (< 50 ng/mL); Vista UDS pH Range 5
== END 2021-01-18 20:50 | disposition left against medical advice (07) ==
LOC: ED 20:54
DX: Z53.21 Procedure and treatment not carried out due to patient leaving prior to being seen by health care provider (principal)
CPT/HCPCS: 36415; 80048; 80307; 82077; 85025